=== PATIENT | male | born 2000 | race African-American/Black ===

== ENCOUNTER 2024-05-27 23:15 | Emergency (ER) | payer SELFPAY ==
[~2024-05-27] VITALS: Ht 167.6 cm; Wt 65.7 kg
[2024-05-27 23:20] VITALS: TEMP 98; O2SAT 98
[2024-05-27] MEDS: PROPOFOL 200MG/20ML VIAL IV ONE (23:35)
[2024-05-27] MEDS: KETAMINE HCL 50 MG/ML 10ML IV ONE (23:35)
[2024-05-28] MEDS: ACETAMINOPHEN 1000MG/100ML 100 ML IV ONE (00:18)
[2024-05-28] MEDS: SODIUM CHLORIDE 0.9% 1,000 ML IV ONE (00:58)
[2024-05-28 01:22] VITALS: BP 146/88; PULSE 68; RESP 21; O2SAT 99
[2024-05-28] MEDS ORDERED: IBUP-2029 MT (01:35)
== END 2024-05-28 02:33 | disposition home or self-care (01) ==
LOC: ER 23:15
DX: S43.014A Anterior dislocation of right humerus, initial encounter (principal); X58.XXXA Exposure to other specified factors, initial encounter; Y93.89 Activity, other specified; Y92.89 Other specified places as the place of occurrence of the external cause; Y99.8 Other external cause status
CPT/HCPCS: 73030 ×2; 23650; 99152; 99285; 96361; 96374; J3490; J2704; J7030; Z7610 ×2; J0131